=== PATIENT | female | born 1960 | race Hispanic/Latino ===

== ENCOUNTER 2020-01-15 00:54 | Observation (INO) | payer MEDICARE, SELFPAY ==
[2020-01-15 01:25] LABS: #Eosinphils 0.1 thou/uL (0.0-0.7); #Lymphocytes 1.6 thou/uL (1.20-3.40); #Monocytes 0.4 thou/uL (0.11-0.59); #Neutrophils 4.7 thou/uL (1.40-6.50); %Basophils 0.5 % (0.0-1.0); %Lymphocytes 23.7 % (21.0-51.0); %Monocytes 6.2 % (0.0-10.0); %Neutrophils 67.6 % (42.0-75.0); Hemoglobin 12.8 g/dL (12.0-16.0); Mean Corpuscular HGB CONC 33.6 g/dL (32.0-36.0); Mean Corpuscular Hemoglobin 29.6 pg (27.0-31.0); Mean Corpuscular Volume 88.2 fL (78.0-98.0); Mean Platelet Volume 8.8 fL (7.4-10.4); Platelet Count 179 thou/uL (130-400); RBC Distribution Width 13.5 % (11.5-14.5); Red Blood Cell (RBC) Count 4.33 mill/uL (4.20-5.40); White Blood Cell (WBC) Count 6.9 thou/uL (4.8-10.8)
[2020-01-15 01:36] LABS: ALT (SGPT) 13 U/L (8-55); AST (SGOT) 10 U/L (5-34); Albumin 3.9 g/dL (3.4-4.8); Alkaline Phosphatase 121 U/L (40-110); Anion Gap 11 mmol/L (10-20); BUN (Urea Nitrogen) 13 mg/dL (9.8-20.1); Bilirubin, Total 0.4 mg/dL (0.2-1.2); Calc. Creatinine Clearance 0 mL/min (70-130); Carbon Dioxide 24 mmol/L (23-31); Chloride 108 mmol/L (98-107); Estimated GFR-MDRD 88; Potassium 3.4 mmol/L (3.5-5.1); Protein, Total 6.9 g/dL (6.0-8.3); Sodium 140 mmol/L (136-145)
[2020-01-15 01:41] LABS: Glucose 57 mg/dL (80-115)
[2020-01-15] MEDS ORDERED: Aspirin 325 MG TAB ONE (03:01)
[2020-01-15 06:30] VITALS: BMI 39.9
--- NOTE | 2020-01-15 09:16 | CT ---
PRELIMINARY REPORT/[facility]/EMERGENCY AFTER HOURS PROCEDURE: HISTORY: F59 presents to ED via EMS with c/o low BGL. EMS reports she pt feels weak at home. Pt repo rts sweating. Pt reports that she is feeling better. hx: stroke, depression. CT HEAD TECHNIQUE: Without contrast. COMPARISON: None. LIMITATIONS: None. BRAIN: No acute hemorrhage. Normal ramirez/white matter differentiation. No mass, mass effect or midli ne shift. Normal sized sulci and cisterns. VENTRICLES: No hydrocephalus. EXTRA-AXIAL SPACES: No hemorrhages, fluid collections, or masses. CALVARIUM/SKULL BASE: Normal. FACE/SINUSES: Visualized portions normal. SOFT TISSUES: Normal. OTHER: Mildly calcified internal carotid arteries. CONCLUSION: No acute intracranial abnormality. ELECTRONICALLY SIGNED BY: Estefany Bedolla M.D. Jan 15, 2020 2:49:43 AM DIRECTOR BIOSTATISTICS This report is intended for review by the ordering physician only, in accordance of law. If you recei ve this report in error, please call [facility] at [phone]. FINAL REPORT EMERGENCY AFTER HOURS BRAIN CT WITHOUT IV CONTRAST: Date: 01/15/2020 Time: 0132 hours COMPARISON: 08/01/2015. HISTORY: Weakness, stroke, depression. FINDINGS/IMPRESSION: No mass or bleed, or other acute process. The head is cocked to the side with some rotational side-to -side asymmetry changes. No acute process. This report is in agreement with preliminary report by [facility]. POS: [facility]
[2020-01-15] MEDS ORDERED: Dextrose 5% in Water 1,000 ML IV PRN (09:30)
[2020-01-15] MEDS ORDERED: Dextrose 50% Abboject 50 ML SYRINGE IVP PRN (09:30)
[2020-01-15] MEDS ORDERED: HumaLOG 300 UNITS/3 ML VIAL SC PRN ×2 (09:31→09:48)
[2020-01-15] MEDS ORDERED: Lorazepam 2 MG/ML VIAL SLOW IVP SCH (10:45)
[2020-01-15] MEDS: HumaLOG 300 UNITS/3 ML VIAL SC SCH ×2 (11:26→17:18)
[2020-01-15] MEDS ORDERED: Acetaminophen 325 MG TAB PO PRN (12:14)
[2020-01-15] MEDS ORDERED: Lisinopril/Hydrochlorothiazide 10 mg/12.5 mg Tablet PO SCH (12:15)
[2020-01-15] MEDS ORDERED: Aspirin 325 MG TAB PO SCH (12:15)
--- NOTE | 2020-01-15 14:11 | MRI ---
MRI of thebrain: 01/15/2020 COMPARISON:07/21/2015 HISTORY:Transient ischemic attack TECHNIQUE: Multiplanar multisequence MR imaging of thebrain with and without contrast Findings:The diffusion weighted imaging demonstrates no acute infarction. Axial gradient echo imaging demonstrates no evidence for intracranial hemorrhage. A few scattered subcentimeter foci of increased T2 and FLAIR signal within the white matter suggesting mild small vessel disease. No midline shift or mass effect. No ventricular enlargement. Arterial flow voids at axial level of sk ull base appear grossly unremarkable on the T2-weighted imaging. Postcontrast imaging unremarkable. IMPRESSION: No intracranial hemorrhage or acute infarction.
[2020-01-15] MEDS ORDERED: Magnevist 469MG/ML 20 ML VIAL ONE (14:47)
[2020-01-15] MEDS: Gabapentin 300 MG CAP PO SCH ×2 (15:59→21:12)
--- NOTE | 2020-01-15 16:57 | CON ---
DATE OF CONSULTATION: 01/15/2020 CONSULTING PHYSICIAN: Keegan Cabral MD. IMPRESSION: Hypoglycemia. PLAN: Adjust medications as you feel appropriate. HISTORY OF PRESENT ILLNESS: Ms. Tapia is a 59-year-old woman with a history of hypertension and diabetes. She began feeling hypoglycemic. She was generally weak in all 4 extremities. She came into the hospital for treatment. Since her sugar has come up, she is feeling much better. She had a CT scan of the brain done, that was normal. She initially presented with a blood pressure of 200/90. All her lab work was unremarkable otherwise. She has since had an MRI of the brain, which is also normal. She is without any complaints of lateralized weakness or numbness. She has a distant history of some stroke symptoms. PAST HISTORY: 1. Hypertension. 2. Diabetes. ALLERGIES: NONE. SOCIAL HISTORY: No tobacco. FAMILY HISTORY: Noncontributory. REVIEW OF SYSTEMS: Ten-system review of systems is otherwise negative. PHYSICAL EXAMINATION: GENERAL: She is an overweight, middle-aged woman, in no acute distress. VITAL SIGNS: Stable. She is afebrile. HEENT: Pupils equal and reactive. Conjunctivae clear. Oropharynx clear. Cranium, normocephalic and atraumatic. NECK: Supple. No lymphadenopathy. EXTREMITIES: No cyanosis. NEUROLOGIC: She is alert and appropriate. Her speech is fluent and clear. She has no focal deficits. LABORATORY DATA: EKG shows a sinus rhythm. SUMMARY: This is a middle-aged woman with some transient weakness related to hypoglycemia. I do not see any acute neurologic issues. Job ID: [id number]
[2020-01-15 19:45] VITALS: BP 132/65; TEMP 98.7
[2020-01-15] MEDS ORDERED: Insulin Glargine 65 UNITS in Pre-Filled Syringe 1 EACH SC SCH (21:00)
[2020-01-15] MEDS ORDERED: Insulin Glargine 40 UNITS in Pre-Filled Syringe 1 EACH SC SCH (21:00)
[2020-01-15] MEDS ORDERED: Atorvastatin Calcium 10 MG TAB PO SCH (21:00)
[2020-01-15] MEDS ORDERED: Potassium Chloride 20 MEQ TAB PO SCH (21:15)
--- NOTE | 2020-01-16 07:53 | HP ---
REASON FOR ADMISSION/CHIEF COMPLAINT: Low blood sugar and weakness on the right side. HISTORY OF PRESENT ILLNESS: Ms. Tapia is a 59-year-old female, admitted because of low blood sugars as well as weakness. The patient has a history of CVA. She felt more weak on the right than the left and in the ER, the patient thought maybe she has a new CVA, so the patient was admitted to rule out CVA as well as management of hypoglycemia. After admission, her sugar went up and she is feeling better now. She does not have any chest pain. No nausea or vomiting. PAST MEDICAL HISTORY: 1. Diabetes mellitus. 2. History of CVA. 3. Hypertension. 4. Neuropathy. PAST SURGICAL HISTORY: Status post rotator cuff, status post hysterectomy, status post left arm surgery. CURRENT MEDICATIONS: The patient is on: 1. Atorvastatin 10 mg daily. 2. Aspirin 325 mg daily. 3. Vitamin D daily. 4. Gabapentin 1 capsule t.i.d. 5. Humalog insulin 5 units before each meal. 6. Levemir insulin 65 units daily. 7. Lisinopril/hydrochlorothiazide 10/12.5 daily. ALLERGIES: NKDA. FAMILY HISTORY: Nothing contributory. SOCIAL HISTORY: The patient lives with family. No history of smoking. No history of alcohol. REVIEW OF SYSTEMS: Unremarkable except for weakness. PHYSICAL EXAMINATION: GENERAL: The patient is alert, awake, oriented x3. VITAL SIGNS: Temperature 98, pulse 80, respirations 20, blood pressure initially 200/90, now 140/60. HEENT: Head is normocephalic, atraumatic. Pupils equal and reactive. Nasopharynx is pale and dry. NECK: Supple. No JVD. LUNGS: Bilateral air entry clear. No rales. No rhonchi. HEART: S1 and S2 regular. ABDOMEN: Soft. No distention. No tenderness. No organomegaly. Bowel sounds present. RECTAL: Deferred. CENTRAL NERVOUS SYSTEM: The patient is alert, awake, oriented x3. Motor system , power 4/5 in all extremities. Deep tendon reflexes 2+ bilaterally. Plantar downgoing. Sensory intact. LABORATORY DATA: CBC shows WBC 6.9, hemoglobin 12, hematocrit 38, platelets 179,000. Metabolic panel; sodium 140, potassium 3.4, chloride 108, CO2 of 25, urea nitrogen 13, creatinine 0.7, glucose 57. CT scan of brain unremarkable. Brain MRI also unremarkable. ASSESSMENT: 1. Symptomatic hypoglycemia, improved. 2. Right-sided weakness secondary to hypoglycemia, improved. 3. Hypertension, uncontrolled. Improved. 4. Hyperlipidemia. 5. Hypokalemia. We will give a dose of potassium. PLAN: 1. Vital signs q.4 hours. 2. Activity as tolerated. 3. Allergies, NKDA. 4. Hep-Lock. 5. Continue home medications. 6. Accu-Chek before meals and at bedtime. 7. Sliding scale mild with regular insulin. The patient will be discharged home today. Job ID: [id number] [facility]
[2020-01-16] MEDS ORDERED: Lisinopril/Hydrochlorothiazide 10 mg/12.5 mg Tablet PO SCH (09:00)
[2020-01-16] MEDS ORDERED: Aspirin 325 MG TAB PO SCH (09:00)
--- NOTE | 2020-01-16 13:07 | DIS ---
DATE OF ADMISSION: 01/15/2020 DATE OF DISCHARGE: 01/15/2020 ADMITTING DIAGNOSES: 1. Symptomatic hypoglycemia. 2. Right-sided weakness secondary to hypoglycemia. 3. Hypertension, uncontrolled. 4. Hyperlipidemia. 5. Hypokalemia. FINAL DIAGNOSES: 1. Symptomatic hypoglycemia, improved. 2. Right-sided weakness secondary to hypoglycemia, improved. 3. Hypertension uncontrolled, improved. 4. Hyperlipidemia. 5. Hypokalemia, corrected. BRIEF SUMMARY OF HOSPITAL COURSE: Ms. Tapia is a 59-year-old female, admitted because of weakness. The patient had history of CVA. ER physician felt the patient may have new stroke, so admitted to rule out CVA. The patient was found to be hypoglycemic, so her symptoms were mainly related to hypoglycemia. Once her blood sugar was corrected, her weakness went away. Her is able to ambulate. Initially, her blood pressure uncontrolled, but later improved. The patient was also seen by a neurologist as well, who felt the patient weakness secondary o hypoglycemia. KCl one dose. In view of improvement, the patient is being discharged, and at the time of discharge, she was stable, vital signs stable. Lungs clear. Heart sounds regular. Abdomen is soft, no distention. DISCHARGE MEDICATIONS: Include, 1. Lisinopril with hydrochlorothiazide 10/12.5 daily. 2. Atorvastatin 10 mg daily. 3. Aspirin 325 mg daily. 4. Vitamin D 1000 units daily. 5. Gabapentin 300 t.i.d. 6. Humalog insulin 5 units before meals. 7. Levemir insulin 45 units daily, which was reduced to 45. The patient is advised to come for followup in 2 weeks. Job ID: [id number] [facility]
== END 2020-01-15 21:25 | disposition home or self-care (01) ==
LOC: ERS 00:54 → 2SE 03:02
PROVIDERS: ADMIT Internal Medicine; ATTEND Internal Medicine
DX: E11.649 Type 2 diabetes mellitus with hypoglycemia without coma (principal); I10 Essential (primary) hypertension; E78.5 Hyperlipidemia, unspecified; E87.6 Hypokalemia; E11.40 Type 2 diabetes mellitus with diabetic neuropathy, unspecified; Z86.73 Personal history of transient ischemic attack (TIA), and cerebral infarction without residual deficits; Z79.4 Long term (current) use of insulin; Z79.82 Long term (current) use of aspirin; Z79.899 Other long term (current) drug therapy
CPT/HCPCS: 70450; 70553; 80053; 82962; 85025; 93005; 94760; 96374; 99285; G0378 ×2; 36415; 36416; A9579; J1815; J2060

== ENCOUNTER 2020-05-24 17:13 | Emergency (ER) | payer MEDICARE ==
--- NOTE | 2020-05-24 17:57 | RAD ---
RIGHT HAND TWO VIEWS: History: Pain Comparison: None FINDINGS: No fracture, cortical irregularity or periosteal reaction. Preserved joint spaces. IMPRESSION: No acute abnormality. POS: [facility]
[2020-05-24] MEDS ORDERED: Adacel (T-DAP) 0.5 ML SYRINGE ONE (18:13)
== END 2020-05-24 18:14 | disposition home or self-care (01) ==
LOC: ERS 17:13
DX: S61.215A Laceration without foreign body of left ring finger without damage to nail, initial encounter (principal); S61.217A Laceration without foreign body of left little finger without damage to nail, initial encounter; Z86.73 Personal history of transient ischemic attack (TIA), and cerebral infarction without residual deficits; E11.9 Type 2 diabetes mellitus without complications; I10 Essential (primary) hypertension; F32.9 Major depressive disorder, single episode, unspecified; Z79.899 Other long term (current) drug therapy; Z79.4 Long term (current) use of insulin; Z23 Encounter for immunization; W26.8XXA Contact with other sharp object(s), not elsewhere classified, initial encounter
CPT/HCPCS: 12001; 90471; 90715

== ENCOUNTER 2020-11-14 20:24 | Emergency (ER) | payer MEDICARE ==
[2020-11-14] MEDS ORDERED: Acetaminophen 500 MG TAB ONE (20:58)
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
== END 2020-11-14 21:38 | disposition home or self-care (01) ==
LOC: ERS 20:24
DX: S16.1XXA Strain of muscle, fascia and tendon at neck level, initial encounter (principal); S13.4XXA Sprain of ligaments of cervical spine, initial encounter; V43.62XA Car passenger injured in collision with other type car in traffic accident, initial encounter; Z79.899 Other long term (current) drug therapy; Z79.4 Long term (current) use of insulin; E11.40 Type 2 diabetes mellitus with diabetic neuropathy, unspecified; I10 Essential (primary) hypertension
CPT/HCPCS: 71045; 72125; 93005

== ENCOUNTER 2020-12-07 11:41 | Emergency (ER) | payer MEDICARE ==
[2020-12-07 12:18] LABS: #Monocytes 0.3 thou/uL (0.11-0.59); #Neutrophils 4.3 thou/uL (1.40-6.50); %Basophils 0.1 % (0.0-1.0); %Eosinophils 0.1 % (0.0-10.0); %Monocytes 5.9 % (0.0-10.0); %Neutrophils 76.9 % (42.0-75.0); Hemoglobin 14.9 g/dL (12.0-16.0); Mean Corpuscular HGB CONC 32.6 g/dL (32.0-36.0); Mean Corpuscular Hemoglobin 28.4 pg (27.0-31.0); Mean Corpuscular Volume 87.3 fL (78.0-98.0); Mean Platelet Volume 9.9 fL (7.4-10.4); Platelet Count 136 thou/uL (130-400); RBC Distribution Width 13.5 % (11.5-14.5); Red Blood Cell (RBC) Count 5.25 mill/uL (4.20-5.40); White Blood Cell (WBC) Count 5.6 thou/uL (4.8-10.8)
[2020-12-07 12:42] LABS: ALT (SGPT) 15 U/L (8-55); AST (SGOT) 23 U/L (5-34); Albumin 3.8 g/dL (3.4-4.8); Alkaline Phosphatase 198 U/L (40-110); Anion Gap 16 mmol/L (10-20); BUN (Urea Nitrogen) 13 mg/dL (9.8-20.1); Bilirubin, Total 0.5 mg/dL (0.2-1.2); Calc. Creatinine Clearance 0 mL/min (70-130); Calcium 8.5 mg/dL (7.8-10.44); Carbon Dioxide 26 mmol/L (23-31); Chloride 102 mmol/L (98-107); Globulin 3.1 g/dL (2.4-3.5); Glucose 219 mg/dL (80-115); Protein, Total 6.9 g/dL (6.0-8.3); Sodium 139 mmol/L (136-145)
--- NOTE | 2020-12-07 13:16 | RAD ---
RADIOGRAPH CHEST 1 VIEW: DATE: 12/07/2020 TIME: 12:42 PM HISTORY: 60-year-old female,: COVID 19 positive, with dyspnea COMPARISON: 11/22/2020 FINDINGS: There are new mild to moderate patchy infiltrates at the right upper lobe and right lower lung zone l aterally. There are smaller, more faint such infiltrates at left lower lung zone and left midlung field. No cardiomegaly or pneumothorax. IMPRESSION: Bilateral COVID 19 pneumonia, right greater than left
--- NOTE | 2020-12-11 14:01 | EKG ---
Test Reason : Blood Pressure : / mmHG Vent. Rate : 082 BPM Atrial Rate : 082 BPM P-R Int : 128 ms QRS Dur : 078 ms QT Int : 368 ms P-R-T Axes : 041 026 033 degrees QTc Int : 429 ms Normal sinus rhythm Normal ECG Confirmed by JESSY MONTEZ DO ([id number]), content editor YRIS LAYNE ([id number]) on 12/11/2020 2:01:01 PM Referred By: Confirmed By:JESSY MONTEZ DO
== END 2020-12-07 13:41 | disposition home or self-care (01) ==
LOC: ERS 11:41
DX: U07.1 COVID-19 (principal); J12.82 Pneumonia due to coronavirus disease 2019; E11.40 Type 2 diabetes mellitus with diabetic neuropathy, unspecified; I10 Essential (primary) hypertension; Z86.73 Personal history of transient ischemic attack (TIA), and cerebral infarction without residual deficits; Z79.4 Long term (current) use of insulin; Z79.899 Other long term (current) drug therapy
CPT/HCPCS: 36415; 71045; 80053; 83880; 84484; 85025; 93005

== ENCOUNTER 2021-02-12 16:39 | Emergency (ER) | payer MEDICARE ==
[~2021-02-12 16:39] MED LIST: Iopamidol-370 76% 500 ML 1 ML ONE
[2021-02-12 17:00] LABS: #Basophils 0.1 thou/uL (0.0-0.2); #Eosinphils 0.2 thou/uL (0.0-0.7); #Lymphocytes 1.8 thou/uL (1.20-3.40); #Monocytes 0.4 thou/uL (0.11-0.59); #Neutrophils 3.7 thou/uL (1.40-6.50); %Basophils 1.3 % (0.0-1.0); %Eosinophils 2.7 % (0.0-10.0); %Lymphocytes 29.5 % (21.0-51.0); %Monocytes 6.5 % (0.0-10.0); Hemoglobin 14.2 g/dL (12.0-16.0); Mean Corpuscular HGB CONC 34.3 g/dL (32.0-36.0); Mean Corpuscular Hemoglobin 30.4 pg (27.0-31.0); Mean Corpuscular Volume 88.7 fL (78.0-98.0); Mean Platelet Volume 8.9 fL (7.4-10.4); Platelet Count 198 thou/uL (130-400); RBC Distribution Width 14.3 % (11.5-14.5); Red Blood Cell (RBC) Count 4.65 mill/uL (4.20-5.40); White Blood Cell (WBC) Count 6.2 thou/uL (4.8-10.8)
[2021-02-12 17:07] LABS: PTT 30.8 sec (22.9-36.1); Prothrombin Time 11.9 sec (12.0-14.7)
[2021-02-12 17:09] LABS: INR-International Normal Ratio 0.9
[2021-02-12 17:28] LABS: ALT (SGPT) 28 U/L (8-55); AST (SGOT) 34 U/L (5-34); Albumin 4.2 g/dL (3.4-4.8); Alkaline Phosphatase 167 U/L (40-110); Anion Gap 14 mmol/L (10-20); BUN (Urea Nitrogen) 18 mg/dL (9.8-20.1); Bilirubin, Total 0.5 mg/dL (0.2-1.2); CK (CPK) 49 U/L (29-168); Calc. Creatinine Clearance 0 mL/min (70-130); Carbon Dioxide 24 mmol/L (23-31); Chloride 105 mmol/L (98-107); Globulin 3.3 g/dL (2.4-3.5); Glucose 273 mg/dL (80-115); Potassium 5.1 mmol/L (3.5-5.1); Protein, Total 7.5 g/dL (5.8-8.1); Sodium 138 mmol/L (136-145)
== END 2021-02-12 19:10 | disposition home or self-care (01) ==
LOC: ERS 16:39
DX: F12.929 Cannabis use, unspecified with intoxication, unspecified (principal); G45.9 Transient cerebral ischemic attack, unspecified; E11.40 Type 2 diabetes mellitus with diabetic neuropathy, unspecified; I10 Essential (primary) hypertension; Z79.82 Long term (current) use of aspirin; Z79.899 Other long term (current) drug therapy; Z79.4 Long term (current) use of insulin
CPT/HCPCS: 36416; 70450; 70496; 70498; 71045; 80053; 82550; 84484; 85025; 85610; 85730; 93005; Q9967

== ENCOUNTER 2021-10-28 15:16 | Outpatient (CLI) | payer MEDICARE | END 2021-10-28 15:17 | disposition home or self-care (01) | LOC: BICMAMMO 15:16 | PROVIDERS: ATTEND Nurse Practitioner Family | DX: Z12.31 Encounter for screening mammogram for malignant neoplasm of breast (principal) | CPT/HCPCS: 77063; 77067 ==

== ENCOUNTER 2023-03-21 12:53 | Outpatient (CLI) | payer MEDICARE, OTHER | END 2023-03-21 12:54 | disposition home or self-care (01) | LOC: BICMAMMO 12:53 | PROVIDERS: ATTEND Nurse Practitioner Family | DX: Z12.31 Encounter for screening mammogram for malignant neoplasm of breast (principal) | CPT/HCPCS: 77063; 77067 ==

== ENCOUNTER 2023-12-14 02:10 | Observation (INO) | payer MEDICARE, OTHER, SELFPAY ==
[2023-12-14 04:45] LABS: #Eosinphils 0.2 thou/uL (0.0-0.7); #Monocytes 0.4 thou/uL (0.11-0.59); #Neutrophils 3.3 thou/uL (1.40-6.50); %Basophils 0.6 % (0.0-1.0); %Eosinophils 3.9 % (0.0-10.0); %Lymphocytes 34.6 % (21.0-51.0); %Monocytes 6.8 % (0.0-10.0); %Neutrophils 53.8 % (42.0-75.0); Hematocrit 37.6 % (36.0-47.0); Hemoglobin 12.5 g/dL (12.0-16.0); Mean Corpuscular HGB CONC 33.2 g/dL (32.0-36.0); Mean Corpuscular Hemoglobin 28.7 pg (27.0-31.0); Mean Corpuscular Volume 86.2 fl (78.0-98.0); Mean Platelet Volume 11.1 fL (7.4-10.4); Platelet Count 209 10x3/uL (130-400); RBC Distribution Width 13.5 % (11.5-14.5); Red Blood Cell (RBC) Count 4.36 mill/uL (4.20-5.40); White Blood Cell (WBC) Count 6.2 10x3/uL (4.8-10.8)
[2023-12-14 04:58] LABS: Troponin I Less than 0.010 ng/mL (< 0.028)
[2023-12-14 04:59] LABS: ALT (SGPT) 30 U/L (8-55); AST (SGOT) 22 U/L (5-34); Albumin 3.7 g/dL (3.4-4.8); Alkaline Phosphatase 199 U/L (40-110); Anion Gap 10 mmol/L (10-20); BUN (Urea Nitrogen) 14 mg/dL (9.8-20.1); Bilirubin, Total 0.4 mg/dL (0.2-1.2); CK (CPK) 28 U/L (29-168); Calc. Creatinine Clearance 0 mL/min (70-130); Calcium 9.2 mg/dL (7.8-10.44); Carbon Dioxide 25 mmol/L (23-31); Chloride 108 mmol/L (98-107); Estimated GFR 97; Globulin 2.7 g/dL (2.4-3.5); Glucose 116 mg/dL (80-115); Magnesium 2.1 mg/dL (1.6-2.6); Potassium 4.1 mmol/L (3.5-5.1); Protein, Total 6.4 g/dL (5.8-8.1); Sodium 139 mmol/L (136-145)
[2023-12-14] MEDS ORDERED: Aspirin Chewable 81 MG TAB ONE (06:36)
[2023-12-14] MEDS ORDERED: Ondansetron PF 4 MG/2 ML Vial IVP PRN (08:05)
[2023-12-14] MEDS ORDERED: Acetaminophen 325 MG TAB PO PRN (08:05)
[2023-12-14] MEDS ORDERED: Ondansetron ODT 4 MG TAB PO PRN (08:05)
[2023-12-14] MEDS ORDERED: hydrALAZINE 20 MG/ML VIAL SLOW IVP PRN (08:05)
[2023-12-14] MEDS ORDERED: Acetaminophen 650 MG Suppository PR PRN (08:05)
[2023-12-14] MEDS ORDERED: Gabapentin 300 MG CAP PO PRN (08:08)
[2023-12-14] MEDS ORDERED: Insulin Regular 300 UNITS/3 ML VIAL SC PRN ×2 (08:09)
[2023-12-14] MEDS ORDERED: Dextrose 50% Abboject 50 ML SYRINGE SLOW IVP PRN (08:09)
[2023-12-14] MEDS ORDERED: Dextrose 5% in Water 1,000 ML IV PRN (08:09)
[2023-12-14] MEDS ORDERED: Glucagon 1 MG/ML KIT IM PRN (08:09)
[2023-12-14 08:28] VITALS: BMI 38.3
[2023-12-14 08:41] LABS: Troponin I Less than 0.010 ng/mL (< 0.028)
[2023-12-14] MEDS ORDERED: Aspirin 81 mg Enteric Coated Tablet PO SCH (09:00)
[2023-12-14 12:02] LABS: Troponin I 0.014 ng/mL (< 0.028)
[2023-12-14 13:45] VITALS: BP 149/73
[2023-12-14 16:58] VITALS: TEMP 98.2
[2023-12-14] MEDS ORDERED: Insulin Glargine 30 UNITS/0.3 ML VIAL SC SCH (21:00)
[2023-12-14] MEDS ORDERED: Atorvastatin Calcium 40 MG TAB PO SCH ×2 (21:00)
[2023-12-15] MEDS ORDERED: Aspirin 81 mg Enteric Coated Tablet PO SCH (09:00)
== END 2023-12-14 17:20 | disposition home or self-care (01) ==
LOC: ERS 02:10 → ERHOLD 07:46
PROVIDERS: ADMIT Hospitalist; ATTEND Physician Assistant
DX: R53.1 Weakness (principal); I10 Essential (primary) hypertension; E78.5 Hyperlipidemia, unspecified; E11.42 Type 2 diabetes mellitus with diabetic polyneuropathy; Z79.4 Long term (current) use of insulin; Z79.82 Long term (current) use of aspirin; Z79.899 Other long term (current) drug therapy; Z86.73 Personal history of transient ischemic attack (TIA), and cerebral infarction without residual deficits; Z90.710 Acquired absence of both cervix and uterus; Z87.59 Personal history of other complications of pregnancy, childbirth and the puerperium; Z98.890 Other specified postprocedural states
CPT/HCPCS: 70450; 70551; 80053; 82550; 82962; 83735; 84484 ×2; 85025; 93005; 93971; 99285; G0378; 36415; 36416

== ENCOUNTER 2024-06-17 10:09 | Outpatient (CLI) | payer MEDICARE | END 2024-06-17 10:10 | disposition home or self-care (01) | LOC: BICMAMMO 10:09 | PROVIDERS: ATTEND Nurse Practitioner Family | DX: Z12.31 Encounter for screening mammogram for malignant neoplasm of breast (principal); Z80.3 Family history of malignant neoplasm of breast | CPT/HCPCS: 77063; 77067 ==

== ENCOUNTER 2025-11-11 11:39 | Emergency (ER) | payer OTHER, MEDICARE | END 2025-11-11 13:58 | disposition home or self-care (01) | LOC: ERS 11:39 | DX: S70.12XA Contusion of left thigh, initial encounter (principal); I10 Essential (primary) hypertension; E11.40 Type 2 diabetes mellitus with diabetic neuropathy, unspecified; V49.9XXA Car occupant (driver) (passenger) injured in unspecified traffic accident, initial encounter; Z86.73 Personal history of transient ischemic attack (TIA), and cerebral infarction without residual deficits | CPT/HCPCS: 99284 ==